=== PATIENT | female | born 1940 | race Caucasian/White ===

== ENCOUNTER 2018-09-03 07:35 | Observation (INO) | payer MEDICARE, SELFPAY ==
[2018-09-03] VITALS (12 sets, daily range): BP systolic 120–162; BP diastolic 56–83; PULSE 56–75; RESP 13–18; TEMP 36.6–36.8; O2SAT 95–98; BMI 23.8; BMI 23.9
--- NOTE | 2018-09-03 07:59 | CT_ITS ---
STUDY: CT BRAIN WITHOUT CONTRAST REASON FOR EXAM: Female, 78 years old. Left upper extremity weakness/numbness. RADIATION DOSAGE (If Supplied By Facility): CTDIvol = ( 44.99 ) mGy, DLP = ( 796.11 ) mGycm TECHNIQUE: Transaxial CT imaging of the brain was performed without administration of intravenous contrast material. Individualized dose optimization techniques were used for this CT. COMPARISON: No relevant priors. FINDINGS: Normal soft tissue structures. Normal calvarium. There is mild cerebral atrophy with widening of the extra-axial spaces and ventricular dilatation. Normal white matter tracts of the cerebral hemispheres. Normal basal ganglia and thalami. Normal brainstem. Normal cerebellum. There is no intracranial hemorrhage. There are no findings of an acute ischemic infarction. Atherosclerotic calcification of the vertebral arteries and cavernous portions of the internal carotid arteries bilaterally. Mucosal thickening of the maxillary sinuses and ethmoid sinuses. Small air-fluid level in the right frontal sinus. CT/Brain/Head without Contrast IMPRESSION: Chronic involutional changes of the brain. Electronically Signed: Reece Doty, at 8:26 EDT , Service support ,
--- NOTE | 2018-09-03 07:59 | EKG12_ITS ---
Test Reason : CP Blood Pressure : / mmHG Vent. Rate : 062 BPM Atrial Rate : 062 BPM P-R Int : 174 ms QRS Dur : 072 ms QT Int : 424 ms P-R-T Axes : 066 -23 031 degrees QTc Int : 430 ms Sinus rhythm with Premature atrial complexes Low voltage QRS Borderline ECG Confirmed by ALISA LOUIS, PONCHO ([id number]), assistant editor JOSE RODRIGUEZ ([id number]) on 09/04/2018 8:13:22 AM Referred By: MONO Confirmed By:PONCHO CUELLAR MD
--- NOTE | 2018-09-03 08:00 | ED.VIS.STROK ---
History of Present Illness Chief Complaint: Numb/Ting Informant: Patient Onset: Days - Reports numbness started several days ago Context: Sudden Onset Timing: Intermittent Quality and Location: Left Arm Parasthesia Onset: Stuttering Current Severity: Mild Maximum Severity: Mild Worsened by: Nothing Relieved by: Nothing Associated Symptoms: Negative for: Headache, Nausea, Vomiting, Chest Pain Narrative: Patient is an elderly woman who presents with left upper extremity numbness. Most recent episode started last evening 11 11:30 PM. She also reported intermittent symptoms past several days. She denies headache, nausea vomiting or any associated symptoms. She denies any visual symptoms. She has trouble speech or swallowing. She describes difficulty using up to one specifically asked if she had difficulty she denies. Patient denies history of coronary disease. She does have history of hypothyroidism. She was on Xarelto. When asked if she is present takes Xarelto she responded no. Will review prior records to determine why she was on Xarelto since patient is not a good informant. Prior similar symptoms: No Recent Illness/Hospitalization: No Past Medical History - Allergies and Home Meds Allergies/Adverse Reactions: Allergies No Known Allergies Allergy (Verified 09/03/18 07:36) Primary Care Physician: Leia Horowitz NP-C [Primary Care Provider] - Surgical History: appendectomy, cholecystectomy, herniorrhaphy Lives: Spouse/ Significant Other Smoking Status: Never smoker Alcohol: Rare Drugs: None Review of Systems General: Denies: Chills, Fever, Sweats Eyes: Denies: Visual changes - bilaterally, Blurred Vision - bilaterally, Diplopia ENT: Denies: Rhinorrhea, Sore throat Cardiovascular: Denies: Chest pain, Palpitations Respiratory: Denies: Dyspnea, Cough, Dyspnea on exertion Gastrointestinal: Denies: Abdominal pain, Nausea, Vomiting, Diarrhea, Melena, Hematochezia Genitourinary: Denies: Dysuria, Hematuria, Frequency Musculoskeletal: Denies: Myalgias, Arthralgias, Neck pain, Back pain, Extremity Pain Skin: Denies: Rash, Wounds Neurological: Reports: Parasthesia, Numbness. Denies: Headache, Weakness Hematologic: Denies: Easy bruising, Easy bleeding Allergy: Denies: Uticaria Physical Exam Vital Signs/Narrative: Vital Signs Temp Pulse Resp BP Pulse Ox 09/03/18 07:36 97.9 F 64 17 162/83 H 98 Inital Vital Signs reviewed: Yes - NIH Stroke Scale 1a Level of Consciousness: 0 1b LOC Questions (Score 2 if aphasic/stupor): 1 1c LOC Commands (Only score 1st attempt): 0 2 Best Gaze (If aphasic, use reflexive mvmts.): 0 3 Visual: 0 4 Facial Palsy: 0 5 Motor Arm Right (UN = amputation/fusion): 0 5 Motor Arm Left: 1 6 Motor Leg Right: 0 6 Motor Leg Left: 0 7 Limb ataxia (Only + if out of proportion): 0 8 Sensory (Aphasia/stupor=0 or 1, coma=2): 0 9 Best Language: 0 10 Dysarthria (mute, coma=2, intubated=UN): 0 11 Extinction and Inattention (only scored if +): 0 Total Score: 2 General: Well nourished, Well developed Head: Normocephalic, Atraumatic Eyes: Perrl, EOMI ENT: Moist mucous membranes, No rhinorrhea Neck: Supple, Nontender Cardiovascular: Regular rate, Regular rhythm, No murmurs, Normal S1, Normal S2 Respiratory: No distress, CTA bilaterally, Chest nontender Abdomen: Soft, Nontender, Nondistended, Normal bowel sounds, No masses Back: Nontender, Normal Inspection Extremities: Nontender, No edema, - - Left lower extremity is larger than right. This is chronic. Suspect secondary to prior surgery or herniated disc. She states recent MRI by Dr. Pravin Xie revealed no abnormality to explain atrophy of right lower extremity compared to left. Skin: Normal color, No rash Neurological: Alert, Oriented x3, Cranial nerves II-XII grossly intact, Normal Sensation, Normal DTR - There is no clonus or Babinski sign Psychological: Normal affect Diagnostic/Tx/Re-eval Impressions Brain CT 09/03/18 07:59 IMPRESSION: Chronic involutional changes of the brain. Electronically Signed: Reece Doty, at 8:26 EDT , Service support , 09/03/18 07:59 Brain/Head without Contrast [CT] Stat Laboratory Results 09/03/18 09/03/18 09/03/18 07:55 07:55 07:55 WBC 5.5 RBC 4.68 Hgb 13.5 Hct 40.8 MCV 87.2 MCH 28.8 MCHC 33.1 RDW 13.2 RDW Differential 42.0 Plt Count 179 MPV 10.6 Immature Gran % (Auto) 0.000 Neut % (Auto) 37.2 L Lymph % (Auto) 45.4 H [place] % (Auto) 9.6 Eos % (Auto) 7.3 H Baso % (Auto) 0.5 Absolute Neuts (auto) 2.1 Absolute Lymphs (auto) 2.50 Total Counted Not Reportable PT 13.5 INR 1.1 APTT 30.4 Sodium 139 Potassium 3.8 Chloride 105 Carbon Dioxide 29.0 Anion Gap 5 BUN 12 Creatinine 0.82 Estim Creat Clear Calc 44.00 Est GFR (MDRD) Af Amer 87 Est GFR (MDRD) Non-Af 72 BUN/Creatinine Ratio 14.7 Glucose 95 Calcium 8.9 Troponin I < 0.015 POC Glucose 09/03/18 08:16 WBC RBC Hgb Hct MCV MCH MCHC RDW RDW Differential Plt Count MPV Immature Gran % (Auto) Neut % (Auto) Lymph % (Auto) [place] % (Auto) Eos % (Auto) Baso % (Auto) Absolute Neuts (auto) Absolute Lymphs (auto) Total Counted PT INR APTT Sodium Potassium Chloride Carbon Dioxide Anion Gap BUN Creatinine Estim Creat Clear Calc Est GFR (MDRD) Af Amer Est GFR (MDRD) Non-Af BUN/Creatinine Ratio Glucose Calcium Troponin I POC Glucose 89 - EKG Initial EKG Interpretation: Sinus Rhythm - Rate 62. There are premature atrial beats noted. IN interval is 174 ms, which is normal. QS duration 72 ms, which is normal. QT interval is normal. Computer is reading low voltage. The EKG is unchanged from January 31, 2012. Other than PACs the EKG is normal. - Medical Decision Making Stroke Team Activated: No - Stuttering symptoms that started several days ago IV TPA Administered: No Patient with complaints of numbness left upper extremity demonstrating over the past several days. Last evening the worst. She describes difficulty using her fingers however when specifically asked if had difficulty dressing undressing she states no. She specifically states she had difficulty making a fist. Patient denies any other symptoms. She reported twinging in her chest. The twinge in her chest lasted seconds. Concern patient had a minor CVA. Stroke order set was initiated. Patient was informed she will need admission for further testing. Patient's work-up including troponin is normal. Will inform patient she will require further testing as an inpatient. Patient did ask if this could be secondary to herniated disc. Patient was informed doubtful secondary to herniated disc since symptoms are not in a radicular distribution.. She states she does have arthritis. Again, she was informed not likely. ED Disposition - Plan for ED Patient: Disposition: Home or Assisted Living Diagnosis: Paresthesia of left arm Referrals: Leia Horowitz, PROCESS DESCRIPTION WRITER-C [Primary Care Provider] -
[2018-09-03 08:11] LABS: Absolute Neutrophil Count 2.1 X10^3/uL (2.0-7.7); Basophil# 0.03 X10^3/uL; Basophil% 0.5 % (0-1); Eosinophils% 7.3 % (0-5); Hematocrit 40.8 % (37-47); Hemoglobin 13.5 g/dl (12.0-15.0); Lymphocyte % 45.4 % (19-41); Mean Corp Hgb Conc 33.1 g/gl (32-36); Mean Corpuscular Hgb 28.8 pg (27.0-32.0); Mean Corpuscular Volume 87.2 fL (81-99); Mean Platelet Vol. 10.6 fl (6.2-12.0); Monocyte# 0.53 X10^3/uL; Monocyte% 9.6 % (0-10); Neutrophil # 2.05 X10^3/uL (2.7-7.7); Neutrophil % 37.2 % (47-70); Platelet Count 179 K/mm3 (150-450); RBC Distribution Width CV 13.2 % (11.6-14.6); Red Blood Count 4.68 M/mm3 (4.2-5.4); White Blood Count 5.5 K/mm3 (4.4-11.0)
[2018-09-03 08:13] LABS: International Normalized Ratio 1.1; Prothrombin Time (Protime)PT. 13.5 SECONDS (11.7-14.9)
[2018-09-03 08:14] LABS: POSITIVE COUNT NO; POSITIVE DIFFERENTIAL NO; POSITIVE MORPHOLOGY NO; Partial Thromboplast Time 30.4 Seconds (24.1-36.2)
[2018-09-03 08:21] LABS: Bedside Glucose 89 mg/dL (70-110)
[2018-09-03 08:22] LABS: Anion Gap 5 (5-15); BUN 12 mg/dL (7-18); BUN/Creat Ratio 14.7 RATIO (10-20); Calcium,Total 8.9 mg/dL (8.5-10.1); Chloride 105 mmol/L (98-107); Creatinine, Serum 0.82 mg/dL (0.55-1.02); EST Glomerular Filtration Rate 72 mL/min (>60); Est Glom Filt Rate - Afr Amer 87 mL/min (>60); Glucose 95 mg/dL (74-106); Potassium 3.8 mmol/L (3.5-5.1); Sodium Level 139 mmol/L (136-145)
--- NOTE | 2018-09-03 08:45 | NURSING ---
DR BRITTNEY JOSHUA
--- NOTE | 2018-09-03 08:46 | HP.PCM_ITS ---
History of Present Illness Date of Admission: 09/03/18 Chief Complaint: left arm numbness The patient is a 78 year old F with past medical history of hypothyroidism. She was admitted through the ED on 09/03/2018 with a complaint of left upper extremity weakness which have been going on for about 2 weeks. Abdomen episodic for about 2 weeks but today it worsened and involved her entire left upper extremity with associated pain in her wrists. She also says she had some chest pain which she thought was due to the muscles that she could feel it with palpation. She denied any weakness in any extremity, any blurred vision, any mouth droop, any slurring of his speech, any diarrhea vomiting. She is never bustos d a stroke before. Review of systems is otherwise negative. Vitals in the ED was stable and labs are unremarkable. CT of the brain was negative for any acute or chronic cranial pathology. She has been admitted for left upper extremity numbness to rule out a stroke. [] Past Medical History Past Medical History (Chronic Problems): Chronic Problems GERD (gastroesophageal reflux disease) (Chronic) Acquired hypothyroidism (Chronic) Allergies No Known Allergies Allergy (Verified 09/03/18 07:36) Home Medications: Ambulatory Orders Medication Instructions Recorded Cyanocobalamin [Vitamin B12] 500 mcg PO DAILY@0800 01/18/13 Levothyroxine [Synthroid] 88 mcg PO DAILY 01/18/13 Glucosamine Complex-Vit D3 Cpt 1 tab PO DAILY 09/03/18 L.acidoph,Paracasei, B.lactis 1 each PO DAILY 09/03/18 [Probiotic] [place]idan-3/Dha/Epa/Fish Oil [Fish Oil 1 each PO DAILY 09/03/18 1,000 mg Softgel] Q10 1 cap PO DAILY 09/03/18 Red Yeast Rice 600 mg PO DAILY 09/03/18 Surgical History: appendectomy, cholecystectomy, herniorrhaphy Lives: Spouse/ Significant Other Smoking Status: Never smoker Alcohol: Rare Drugs: None - *Family History Maternal History Items: Heart Disease Paternal History Items: No pertinent history Review of Systems Constitutional: Denies: Chills, Fever, Malaise, Weakness, Weight Change, Fatigue Eyes: Denies: Blurred vision HEENT: Denies: Head Aches, Sinus Congestion, Sinus Drainage Cardiovascular: Denies: Chest Pain, Palpitations Respiratory: Denies: Cough, Shortness of Breath, Shortness of breath at rest, Shortness of breath upon exertion, Sputum production Gastrointestinal: Denies: Abdominal Pain, Nausea, Vomiting Genitourinary: Denies: Dysuria Musculoskeletal: Denies: Joint Pain, Joint Tenderness Skin: Denies: Rash, Wounds Neurological: Reports: Numbness, Tingling. Denies: Balance problems, Blurred vision, Change in Speech, Slurred speech, Confusion, Difficulty swallowing, Focal weakness, Incoordination, Tremor, Seizures Psychiatric: Denies: Anxiety, Depression, Homicidal Ideations, Suicidal Ideations Hematologic/ Lymphatic: Denies: Easy Bruising, Easy Bleeding VTE Information - Inpt Only VTE Present on Admission: No VTE Pharm Prophylaxis ordered?: Yes Patient Problems: Active and Suspected Problems Paresthesia of left arm (Acute) - Physical Exam General: Alert, Oriented x3, Cooperative, No apparent distress HEENT: Atraumatic, PERRLA, EOMI, Normocephalic Oral: Moist Mucosa Neck: Supple, No JVD, Negative Carotid Bruits Lungs: Clear to auscultation, Normal air movement, No rhonchi, No wheeze, No rales Cardiovascular: Regular rate, Regular Rhythm, Normal S1, Normal S2, No murmurs Abdomen: Bowel Sounds Present, Soft, Non Tender, Non-Distended, No Hepato- splenomegaly Extremities: No clubbing, No cyanosis, No edema, Capillary Refill Less than 3 Seconds Skin: No rashes, No breakdown Musculoskeletal: No Tenderness to Palpation of Joints or Extremities Lymphatic: No Cervical, Supraclavicular, or Inguinal Adenopathy Neurological: Cranial nerves II-XII grossly intact, Neuro grossly intact, Motor Exam 5/5 strength throughout, - - mildly decreased sensation to light touch and pinprick in LUE, Phalen;s and Tinel's sign negative. Psych/Mental Status: Normal Affect, Appropriate, Alert and oriented to time, place, person, mood and affect Vital Signs Temp Pulse Resp BP Pulse Ox 97.9 F 66 18 155/67 H 98 09/03/18 07:36 09/03/18 08:34 09/03/18 08:34 09/03/18 08:34 09/03/18 08:34 Oxygen Delivery Method Room Air Weight: 130 lb 1.164 oz Body Mass Index (BMI) 23.8 Finger Stick Blood Glucose 89 Laboratory Tests Past 24 Hrs 09/03/18 09/03/18 09/03/18 07:55 07:55 07:55 WBC 5.5 RBC 4.68 Hgb 13.5 Hct 40.8 MCV 87.2 MCH 28.8 MCHC 33.1 RDW 13.2 RDW Differential 42.0 Plt Count 179 MPV 10.6 Immature Gran % (Auto) 0.000 Neut % (Auto) 37.2 L Lymph % (Auto) 45.4 H [place] % (Auto) 9.6 Eos % (Auto) 7.3 H Baso % (Auto) 0.5 Absolute Neuts (auto) 2.1 Absolute Lymphs (auto) 2.50 Total Counted Not Reportable PT 13.5 INR 1.1 APTT 30.4 Sodium 139 Potassium 3.8 Chloride 105 Carbon Dioxide 29.0 Anion Gap 5 BUN 12 Creatinine 0.82 Estim Creat Clear Calc 44.00 Est GFR (MDRD) Af Amer 87 Est GFR (MDRD) Non-Af 72 BUN/Creatinine Ratio 14.7 Glucose 95 Calcium 8.9 Troponin I < 0.015 POC Glucose 09/03/18 08:16 POC Glucose [address] 09/03/18 07:59 IMPRESSION: Chronic involutional changes of the brain. Electronically Signed: Reece Soren, at 8:26 EDT , Service support , Assessment/Plan All Active Problems Paresthesia of left arm (Acute) 78-year-old female admitted with a complaint of left upper extremity numbness. 1. Left upper extremity numbness possibly due to CVA vs cervical spine stenosis * Admit to PCU telemetry * NIHSS- 1 (mildly decreased sensation in LUE) * CT of the brain showed no acute intracranial pathology. * Will get MRI of the brain also get CT angiogram of the head and neck as well as CT of the cervical spine. * Neurochecks. Monitor NIH stroke scale. Will start on high intensity statin and aspirin. * A1c was only 5.6 and lipid profile showed elevated cholesterol of 215 with LDL of 134. * Consult neurology. * 2. Hypothyroidism: On Synthroid. DVT prophylaxis: Lovenox * Code Visit OBSV E&M: 85312 Initial observation care L3
--- NOTE | 2018-09-03 10:07 | MRI_ITS ---
STUDY: MRI BRAIN WITHOUT CONTRAST REASON FOR EXAM: Female, 78 years old. Left arm numbness and tingling TECHNIQUE: Standardized multiplanar fat and water weighted pulse sequences were obtained. COMPARISON: 06/08/2011 FINDINGS: There is mild cerebral atrophy with widening of the extra-axial spaces and ventricular dilatation. There are a limited number of small white matter hyperintensities, distributed throughout the deep white matter tracts of the cerebral hemispheres, consistent with mild chronic white matter ischemic changes. There is no evidence for recent intracranial ischemia or other cause of cytotoxic edema on diffusion weighted imaging (DWI). Normal T2* images of the brain without demonstrated susceptibility artifact. There is no demonstrated hemosiderin stain. Normal bilateral basal ganglia. Normal thalami. There is no extra-axial fluid accumulation. Normal flow voids within the major intracranial circulation suggesting patency by spin echo criteria. Normal sella turcica, pituitary gland, infundibular stalk, optic chiasm and hypothalamus. Normal tectal plate and pineal gland. Normal midbrain, jaswant and medulla. Normal cerebellum. Normal basal cisterns. 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 Normal bilateral internal auditory canals. There are bilateral ocular lens implants with otherwise normal intraorbital contents. There is mucoperiosteal inflammatory disease of the paranasal sinuses consistent with mild chronic sinusitis. Normal calvarium and skull base. Normal visualized soft tissue structures. Normal visualized upper cervical spine. MRI/Brain without Contrast IMPRESSION: Involutional changes of the brain, as described above. No acute infarct. Electronically Signed: Crow Morrison MD at 13:41 EDT Tel , Service support ,
--- NOTE | 2018-09-03 10:21 | CT_ITS ---
STUDY: CTA OF THE BRAIN REASON FOR EXAM: Female, 78 years old. Numbness and tingling of the left upper extremity. RADIATION DOSAGE (If Supplied By Facility): CTDIvol = ( 20.08 ) mGy, DLP = ( 1139.37 ) mGycm TECHNIQUE: CT angiography was performed with a multi-detector CT scanner. Data acquisition was obtained from the skull base through the vertex following intravenous administration of 100 IV Isovue 370. MIP images were reconstructed from the axial data set. Post-processing of the angiographic images was performed, with multiplanar reformation and 3D reconstruction. Individualized dose optimization techniques were used for this CT. COMPARISON: None. FINDINGS: Normal bilateral petrous carotid arteries. Normal right cavernous carotid artery with a normal supraclinoid bifurcation. Normal left cavernous carotid artery with a normal supraclinoid bifurcation. Normal right A1 segments of the anterior cerebral artery. Normal left A1 segments of the anterior cerebral artery. Normal intact anterior communicating artery (ACOM). Normal bilateral A2 segments of the anterior cerebral arteries. Normal right M1 and M2 segments of the middle cerebral arteries, with a normal M1 bifurcation. Normal left M1 and M2 segments of the middle cerebral arteries, with a normal M1 bifurcation. Normal right posterior communicating artery (PCOM). Normal left posterior communicating artery (PCOM). Normal bilateral vertebral arteries. Normal basilar artery with a normal basilar bifurcation. The visualized bilateral superior cerebellar (SCA) arteries are normal. Normal bilateral P1, P2 and visualized P3 segments of the posterior cerebral arteries. There is no demonstrated aneurysm of the [place]. Mucosal thickening of the maxillary and ethmoid sinuses. CT/CTA Head W/WO Contrast IMPRESSION: Normal [place] without a demonstrated aneurysm or hemodynamically significant stenosis. Electronically Signed: Reece Doty, at 14:01 EDT , Service support ,
--- NOTE | 2018-09-03 10:21 | CT_ITS ---
STUDY: CTA NECK WITH CONTRAST REASON FOR EXAM: Female, 78 years old. Numbness and tingling of the left upper extremity. RADIATION DOSAGE (If Supplied By Facility): CTDIvol = ( 20.08 ) mGy, DLP = ( 1139.37 ) mGycm TECHNIQUE: CT angiography with multi-detector data acquisition was performed from the aortic arch to the skull base following intravenous administration of 100 IV Isovue 370. MIP images were reconstructed from the axial data set. Post-processing of the angiographic images was performed, with multiplanar reformation and 3D reconstruction. Individualized dose optimization techniques were used for this CT. COMPARISON: None. FINDINGS: AORTIC ARCH: There is atherosclerotic calcific plaque formation of the aortic arch and great vessels arising from the aortic arch, without a hemodynamically significant stenosis. There is a bovine origin of the great vessels with a common origin of the brachiocephalic and left common carotid artery. Normal origin of the left subclavian artery. RIGHT CAROTID ARTERIES: Normal right common carotid artery (CCA). Normal right common carotid bulb. Normal origin of the right internal carotid (ICA) artery without a hemodynamically significant stenosis. Normal visualized cervical portion of the right internal carotid artery. Normal origin of the right external carotid artery (ECA). LEFT CAROTID ARTERIES: Normal left common carotid artery (CCA). Normal left common carotid bulb. Normal origin of the left internal carotid (ICA) artery without a hemodynamically significant stenosis. Normal visualized cervical portion of the left internal carotid artery. Normal origin of the left external carotid artery (ECA). VERTEBRAL ARTERIES: Normal bilateral vertebral arteries. CT/CTA Neck W/WO Contrast IMPRESSION: Normal bilateral cervical carotid and vertebral arteries. Electronically Signed: Reece Doty, at 14:03 EDT , Service support ,
--- NOTE | 2018-09-03 10:21 | CT_ITS ---
STUDY: CT CERVICAL SPINE WITHOUT CONTRAST REASON FOR EXAM: Female, 78 years old. Left upper extremity numbness and tingling. RADIATION DOSAGE (If Supplied By Facility): CTDIvol = ( 20.08 ) mGy, DLP = ( 1139.37 ) mGycm TECHNIQUE: High resolution transaxial imaging was performed without contrast material. Sagittal and coronal images were reconstructed. Individualized dose optimization techniques were used for this CT. COMPARISON: None FINDINGS: Normal craniovertebral junction. There are degenerative changes of the anterior atlantoaxial articulation. Normal odontoid process. Normal cervical lordosis. Normal vertebral bodies and posterior osseous elements. C2-3: Normal endplates. Normal disc height and morphology. Normal central canal and intervertebral neuroforamina. C3-4: Facet joint osteoarthropathy worse on the left side. No significant stenosis is seen. C4-5: Mild degree of disc space narrowing. Uncovertebral arthrosis. Facet joint osteoarthritis worse on the left side. Mild degree of left neural foraminal stenosis. C5-6: Marked degree of disc space narrowing. Spondylosis. Moderate degree of central canal stenosis and bilateral neural foraminal stenosis worse on the left side. C6-7: Moderate degree of disc space narrowing. Facet joint osteoarthritis worse on the left side. Uncovertebral arthrosis. Mild bilateral neural foraminal stenosis slightly worse on the right side. Normal visualized soft tissue structures. CT/Spine Cervical without Contras IMPRESSION: Multilevel degenerative changes, as described above. Spinal stenosis at the C5-C6 level as described. Electronically Signed: Reece Doty, at 14:05 EDT , Service support ,
[2018-09-03 10:49] LABS: Cholesterol 215 mg/dL (200); High Density Lipoprotein 53 mg/dL; Triglycerides 142 mg/dL; Very Low Density Lipoprotein 28 mg/dL (5-40)
[2018-09-03 10:55] LABS: Hemoglobin A1c 5.6 % (4.2-6.3)
--- NOTE | 2018-09-03 11:06 | ECHOCS_ITS ---
Reason For Study: ARRHYTHMIA, CVA Procedure This was a 2D Doppler, Color Flow transthoracic echocardiogram. Exam performed portable in patient room. Left Ventricle Normal LV size. Left ventricular systolic function is normal. The estimated ejection fraction is 55 %. Stage 2 diastolic dysfunction. No regional wall motion abnormalities noted. Right Ventricle Normal RV size. Normal systolic function. Atria Normal left atrium. Normal right atrium. Bubble contrast study negative for right to left interatrial shunt. Mitral Valve Normal mitral valve. Tricuspid Valve Normal tricuspid valve. Mild (1+) tricuspid valve insufficiency. Pulmonary artery systolic pressure is 33 mmHg. Aortic Valve Normal aortic valve. Pulmonic Valve Normal pulmonic valve. Great Vessels Normal aortic root. The pulmonary artery is normal size. Normal inferior vena cava. Pericardium/Pleural No pericardial effusion. Medication Performed a rapid injection of agitated mix of 9 cc saline and 1cc air to assess for atrial septal defect. Diluted definity 3ml given slow IV push to enhance endocardial definition. MMode/2D Measurements & Calculations LVIDd: 4.0 cm IVSd: 0.72 cm LAV(MOD-bp): 31.1 ml LVIDs: 2.7 cm LVPWd: 0.78 cm RVDd: 3.7 cm FS: 33.1 % LAV(MOD-bp) Indexed: 19.5 ml/m2 LAV(MOD-sp2): 31.4 ml LAV(MOD-sp4): 25.7 ml SV(MOD-sp4): 36.7 ml SV(sp4-el): 40.8 ml LVAd ap4: 22.8 cm2 EDV(MOD-sp4): 61.1 ml EDV(sp4-el): 66.8 ml LVAs ap4: 13.2 cm2 ESV(MOD-sp4): 24.4 ml ESV(sp4-el): 26.0 ml EF(MOD-sp4): 60.1 % EF(sp4-el): 61.0 % LA A4 area: 12.7 cm2 RA A4 area: 10.8 cm2 Time Measurements MV dec time: 0.22 sec Doppler Measurements & Calculations MV E max rigoberto: 90.7 cm/sec Lat Peak E' Rigoberto: 8.0 cm/sec Med Peak E' Rigoberto: 7.8 cm/sec MV A max rigoberto: 84.8 cm/sec E/E' lat: 11.4 E/E' med: 11.7 MV E/A: 1.1 Ao V2 max: 136.5 cm/sec LV V1 max: 121.7 cm/sec PA V2 max: 81.6 cm/sec Ao max P.5 mmHg LV V1 max P.9 mmHg TR max rigoberto: 266.8 cm/sec TR max P.5 mmHg Interpretation Summary Normal LV size. Left ventricular systolic function is normal. The estimated ejection fraction is 55 %. Stage 2 diastolic dysfunction. Bubble contrast study negative for right to left interatrial shunt. Ordering Physician: Aliyah Pate Referring Physician: MESERET LUBIN Performed By: Paulina Feng RDCS
[2018-09-04] VITALS (7 sets, daily range): BP systolic 109–135; BP diastolic 45–69; PULSE 60–70; RESP 16–18; TEMP 36.5–36.7; O2SAT 96–100
[2018-09-04] MEDS: Levothyroxine 88 MCG Tablet PO (05:12)
[2018-09-04 05:57] LABS: Absolute Lymphocyte Count 2.55 X10^3/ul (0.83-4.51); Absolute Neutrophil Count 2.4 X10^3/uL (2.0-7.7); Basophil# 0.02 X10^3/uL; Basophil% 0.3 % (0-1); Eosinophil# 0.46 X10^3/uL; Eosinophils% 7.7 % (0-5); Hematocrit 42.6 % (37-47); Lymphocyte # 2.55 X10^3/ul (4.0); Lymphocyte % 42.9 % (19-41); Mean Corp Hgb Conc 32.9 g/gl (32-36); Mean Corpuscular Hgb 28.4 pg (27.0-32.0); Mean Corpuscular Volume 86.4 fL (81-99); Mean Platelet Vol. 10.9 fl (6.2-12.0); Monocyte# 0.49 X10^3/uL; Monocyte% 8.2 % (0-10); Neutrophil # 2.42 X10^3/uL (2.7-7.7); Neutrophil % 40.7 % (47-70); Platelet Count 203 K/mm3 (150-450); RBC Distribution Width CV 13.2 % (11.6-14.6); RBC Distribution Width SD 40.9 fl (35.1-43.9); Red Blood Count 4.93 M/mm3 (4.2-5.4)
[2018-09-04 06:01] LABS: POSITIVE COUNT NO; POSITIVE DIFFERENTIAL NO; POSITIVE MORPHOLOGY NO
[2018-09-04 06:02] LABS: Anion Gap 7 (5-15); BUN 12 mg/dL (7-18); BUN/Creat Ratio 14.2 RATIO (10-20); Calcium,Total 8.8 mg/dL (8.5-10.1); Chloride 107 mmol/L (98-107); Creatinine, Serum 0.85 mg/dL (0.55-1.02); EST Glomerular Filtration Rate 69 mL/min (>60); Est Glom Filt Rate - Afr Amer 83 mL/min (>60); Estimated Creatinine Clearance 42.45 ml/min; Glucose 91 mg/dL (74-106); Potassium 4.3 mmol/L (3.5-5.1); Sodium Level 142 mmol/L (136-145)
[2018-09-04] MEDS: Cyanocobalamin 500 MCG Tablet PO (09:25)
[2018-09-04] MEDS: Aspirin 81 MG TAB.CHEW PO (09:25)
--- NOTE | 2018-09-04 11:15 | CASEMGMT ---
Patient has a Healthcare POA and Healthcare LW on file at [facility]. 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
--- NOTE | 2018-09-04 11:20 | PCM.CONS.GEN ---
Reason for Consult Date of Consultation: 09/04/18 Reason for Consultation: left arm pain History of Present Illness: The patient is a 78 year old F presents with left arm pain involving fingers, radiating to left chest wall, no neck pain or changes with neck movement, no trigger, symptoms progressive for several weeks, worse when awoke yesterday am. similar symptoms on right but less severe. per admit note:The patient is a 78 year old F with past medical history of hypothyroidism. She was admitted through the ED on 09/03/2018 with a complaint of left upper extremity weakness which have been going on for about 2 weeks. Abdomen episodic for about 2 weeks but today it worsened and involved her entire left upper extremity with associated pain in her wrists. She also says she had some chest pain which she thought was due to the muscles that she could feel it with palpation. She denied any weakness in any extremity, any blurred vision, any mouth droop, any slurring of his speech, any diarrhea vomiting. She is never had a stroke before. Review of systems is otherwise negative. Vitals in the ED was stable and labs are unremarkable. CT of the brain was negative for any acute or chronic cranial pathology. She has been admitted for left upper extremity numbness to rule out a stroke. Past Medical History Past Medical History (Chronic Problems): Chronic Problems GERD (gastroesophageal reflux disease) (Chronic) Acquired hypothyroidism (Chronic) Allergies No Known Allergies Allergy (Verified 09/03/18 07:36) Home Medications: Ambulatory Orders Medication Instructions Recorded Cyanocobalamin [Vitamin B12] 500 mcg PO DAILY@0800 01/18/13 Levothyroxine [Synthroid] 88 mcg PO DAILY 01/18/13 Glucosamine Complex-Vit D3 Cpt 1 tab PO DAILY 09/03/18 L.acidoph,Paracasei, B.lactis 1 each PO DAILY 09/03/18 [Probiotic] [place]-3/Dha/Epa/Fish Oil [Fish Oil 1 each PO DAILY 09/03/18 1,000 mg Softgel] Q10 1 cap PO DAILY 09/03/18 Red Yeast Rice 600 mg PO DAILY 09/03/18 Surgical History: appendectomy, cholecystectomy, herniorrhaphy Lives: Spouse/ Significant Other Smoking Status: Never smoker Alcohol: Rare Drugs: None - *Family History Maternal History Items: Heart Disease Paternal History Items: No pertinent history Review of Systems Constitutional: Denies: Chills, Fever, Weight Change HEENT: Denies: Head Aches, Sinus Congestion, Sinus Drainage Cardiovascular: Denies: Chest Pain, Palpitations Respiratory: Denies: Cough, Shortness of breath at rest, Sputum production Gastrointestinal: Denies: Abdominal Pain, Nausea, Vomiting Genitourinary: Denies: Dysuria Musculoskeletal: Denies: Joint Pain, Joint Tenderness Skin: Denies: Rash, Wounds Neurological: Reports: Focal weakness. Denies: Numbness, Tingling Psychiatric: Denies: Anxiety, Depression, Homicidal Ideations, Suicidal Ideations Hematologic/ Lymphatic: Denies: Easy Bruising, Easy Bleeding Patient Problems: Active and Suspected Problems Paresthesia of left arm (Acute) - Physical Exam General: Alert, Oriented x3, Cooperative HEENT: Atraumatic, PERRLA, EOMI, Normocephalic Neck: Supple, No JVD, Negative Carotid Bruits Lungs: Clear to auscultation, Normal air movement Cardiovascular: Regular rate, No murmurs Abdomen: Bowel Sounds Present, Soft, Non Tender Extremities: No edema, Capillary Refill Less than 3 Seconds Skin: No rashes, No breakdown Musculoskeletal: No Tenderness to Palpation of Joints or Extremities Neurological: Cranial nerves II-XII grossly intact, - - bilateral hoffmans diffuse mild hyperreflexia Psych/Mental Status: Normal Affect, Appropriate Vital Signs Temp Pulse Resp BP Pulse Ox 36.5 C L 60 18 135/69 H 99 09/04/18 07:30 09/04/18 07:30 09/04/18 07:30 09/04/18 07:30 09/04/18 07:30 Oxygen Delivery Method Room Air Weight: 59.3 kg Body Mass Index (BMI) 23.9 Finger Stick Blood Glucose 89 Intake and Output for Last 24 Hours 09/02/18 09/03/18 09/04/18 23:59 23:59 23:59 Intake Total 1040 / 1040 60 / 60 Balance 1040 / 1040 60 / 60 Laboratory Tests Past 24 Hrs 09/04/18 09/04/18 05:30 05:30 WBC 6.0 RBC 4.93 Hgb 14.0 Hct 42.6 MCV 86.4 MCH 28.4 MCHC 32.9 RDW 13.2 RDW Differential 40.9 Plt Count 203 MPV 10.9 Immature Gran % (Auto) 0.200 Neut % (Auto) 40.7 L Lymph % (Auto) 42.9 H [place] % (Auto) 8.2 Eos % (Auto) 7.7 H Baso % (Auto) 0.3 Absolute Neuts (auto) 2.4 Absolute Lymphs (auto) 2.55 Total Counted Not Reportable Sodium 142 Potassium 4.3 Chloride 107 Carbon Dioxide 28.0 Anion Gap 7 BUN 12 Creatinine 0.85 Estim Creat Clear Calc 42.45 Est GFR (MDRD) Af Amer 83 Est GFR (MDRD) Non-Af 69 BUN/Creatinine Ratio 14.2 Glucose 91 Calcium 8.8 Current Medications Generic Name Dose Route Start Last Admin Trade Name Freq PRN Reason Stop Dose Admin Aspirin 81 mg 09/03/18 11:05 09/04/18 09:25 Aspirin, Baby PO 81 mg DAILY@0800 [facility] Administration Atorvastatin Calcium 40 mg 09/03/18 11:05 09/03/18 17:35 Lipitor PO Not Given QHS OSWALDO Cyanocobalamin 500 mcg 09/04/18 08:00 09/04/18 09:25 Vitamin B12 PO 500 mcg DAILY@0800 [facility] Administration Dextrose 0 gm 09/03/18 10:07 D50w Syringe IV X1 PRN Hypoglycemia Protocol Enoxaparin Sodium 40 mg 09/04/18 10:00 09/04/18 09:26 Lovenox SC Not Given DAILY@1000 [facility] Glucagon 1 mg 09/03/18 10:07 IM .X1 PRN Hypoglycemia Lactobacillus Acidophilus 1 tablet 09/04/18 10:00 09/04/18 09:25 Acidophilus PO 1 tablet DAILY OSWALDO Administration Levothyroxine Sodium 88 mcg 09/04/18 06:00 09/04/18 05:12 Synthroid PO 88 mcg DAILY@0600 [facility] Administration Sodium Chloride 5 - 15 ml 09/03/18 15:25 IV UD PRN SALINE FLUSH mri brain reviewed, no acute cta reviewed, no cervial stenosis ct neck reviewed, ?stenosis Assessment/Plan All Active Problems Paresthesia of left arm (Acute) suspect cervical stenosis mri, if severed consider referral to spine surgeon [prn analgesics
--- NOTE | 2018-09-04 11:24 | CON.PCM_ITS ---
Reason for Consult Date of Consultation: 09/04/18 Reason for Consultation: left arm pain History of Present Illness: The patient is a 78 year old F presents with left arm pain involving fingers, radiating to left chest wall, no neck pain or changes with neck movement, no trigger, symptoms progressive for several weeks, worse when awoke yesterday am. similar symptoms on right but less severe. per admit note:The patient is a 78 year old F with past medical history of hypothyroidism. She was admitted through the ED on 09/03/2018 with a complaint of left upper extremity weakness which have been going on for about 2 weeks. Abdomen episodic for about 2 weeks but today it worsened and involved her entire left upper extremity with associated pain in her wrists. She also says she had some chest pain which she thought was due to the muscles that she could feel it with palpation. She denied any weakness in any extremity, any blurred vision, any mouth droop, any slurring of his speech, any diarrhea vomiting. She is never had a stroke before. Review of systems is otherwise negative. Vitals in the ED was stable and labs are unremarkable. CT of the brain was negative for any acute or chronic cranial pathology. She has been admitted for left upper extremity numbness to rule out a stroke. Past Medical History Past Medical History (Chronic Problems): Chronic Problems GERD (gastroesophageal reflux disease) (Chronic) Acquired hypothyroidism (Chronic) Allergies No Known Allergies Allergy (Verified 09/03/18 07:36) Home Medications: Ambulatory Orders Medication Instructions Recorded Cyanocobalamin [Vitamin B12] 500 mcg PO DAILY@0800 01/18/13 Levothyroxine [Synthroid] 88 mcg PO DAILY 01/18/13 Glucosamine Complex-Vit D3 Cpt 1 tab PO DAILY 09/03/18 L.acidoph,Paracasei, B.lactis 1 each PO DAILY 09/03/18 [Probiotic] [place]-3/Dha/Epa/Fish Oil [Fish Oil 1 each PO DAILY 09/03/18 1,000 mg Softgel] Q10 1 cap PO DAILY 09/03/18 Red Yeast Rice 600 mg PO DAILY 09/03/18 Surgical History: appendectomy, cholecystectomy, herniorrhaphy Lives: Spouse/ Significant Other Smoking Status: Never smoker Alcohol: Rare Drugs: None - *Family History Maternal History Items: Heart Disease Paternal History Items: No pertinent history Review of Systems Constitutional: Denies: Chills, Fever, Weight Change HEENT: Denies: Head Aches, Sinus Congestion, Sinus Drainage Cardiovascular: Denies: Chest Pain, Palpitations Respiratory: Denies: Cough, Shortness of breath at rest, Sputum production Gastrointestinal: Denies: Abdominal Pain, Nausea, Vomiting Genitourinary: Denies: Dysuria Musculoskeletal: Denies: Joint Pain, Joint Tenderness Skin: Denies: Rash, Wounds Neurological: Reports: Focal weakness. Denies: Numbness, Tingling Psychiatric: Denies: Anxiety, Depression, Homicidal Ideations, Suicidal Ideations Hematologic/ Lymphatic: Denies: Easy Bruising, Easy Bleeding Patient Problems: Active and Suspected Problems Paresthesia of left arm (Acute) - Physical Exam General: Alert, Oriented x3, Cooperative HEENT: Atraumatic, PERRLA, EOMI, Normocephalic Neck: Supple, No JVD, Negative Carotid Bruits Lungs: Clear to auscultation, Normal air movement Cardiovascular: Regular rate, No murmurs Abdomen: Bowel Sounds Present, Soft, Non Tender Extremities: No edema, Capillary Refill Less than 3 Seconds Skin: No rashes, No breakdown Musculoskeletal: No Tenderness to Palpation of Joints or Extremities Neurological: Cranial nerves II-XII grossly intact, - - bilateral hoffmans diffuse mild hyperreflexia Psych/Mental Status: Normal Affect, Appropriate Vital Signs Temp Pulse Resp BP Pulse Ox 36.5 C L 60 18 135/69 H 99 09/04/18 07:30 09/04/18 07:30 09/04/18 07:30 09/04/18 07:30 09/04/18 07:30 Oxygen Delivery Method Room Air Weight: 59.3 kg Body Mass Index (BMI) 23.9 Finger Stick Blood Glucose 89 Intake and Output for Last 24 Hours 09/02/18 09/03/18 09/04/18 23:59 23:59 23:59 Intake Total 1040 / 1040 60 / 60 Balance 1040 / 1040 60 / 60 Laboratory Tests Past 24 Hrs 09/04/18 09/04/18 05:30 05:30 WBC 6.0 RBC 4.93 Hgb 14.0 Hct 42.6 MCV 86.4 MCH 28.4 MCHC 32.9 RDW 13.2 RDW Differential 40.9 Plt Count 203 MPV 10.9 Immature Gran % (Auto) 0.200 Neut % (Auto) 40.7 L Lymph % (Auto) 42.9 H [place] % (Auto) 8.2 Eos % (Auto) 7.7 H Baso % (Auto) 0.3 Absolute Neuts (auto) 2.4 Absolute Lymphs (auto) 2.55 Total Counted Not Reportable Sodium 142 Potassium 4.3 Chloride 107 Carbon Dioxide 28.0 Anion Gap 7 BUN 12 Creatinine 0.85 Estim Creat Clear Calc 42.45 Est GFR (MDRD) Af Amer 83 Est GFR (MDRD) Non-Af 69 BUN/Creatinine Ratio 14.2 Glucose 91 Calcium 8.8 Current Medications Generic Name Dose Route Start Last Admin Trade Name Freq PRN Reason Stop Dose Admin Aspirin 81 mg 09/03/18 11:05 09/04/18 09:25 Aspirin, Baby PO 81 mg DAILY@0800 [facility] Administration Atorvastatin Calcium 40 mg 09/03/18 11:05 09/03/18 17:35 Lipitor PO Not Given QHS OSWALDO Cyanocobalamin 500 mcg 09/04/18 08:00 09/04/18 09:25 Vitamin B12 PO 500 mcg DAILY@0800 [facility] Administration Dextrose 0 gm 09/03/18 10:07 D50w Syringe IV X1 PRN Hypoglycemia Protocol Enoxaparin Sodium 40 mg 09/04/18 10:00 09/04/18 09:26 Lovenox SC Not Given DAILY@1000 [facility] Glucagon 1 mg 09/03/18 10:07 IM .X1 PRN Hypoglycemia Lactobacillus Acidophilus 1 tablet 09/04/18 10:00 09/04/18 09:25 Acidophilus PO 1 tablet DAILY OSWALDO Administration Levothyroxine Sodium 88 mcg 09/04/18 06:00 09/04/18 05:12 Synthroid PO 88 mcg DAILY@0600 [facility] Administration Sodium Chloride 5 - 15 ml 09/03/18 15:25 IV UD PRN SALINE FLUSH mri brain reviewed, no acute cta reviewed, no cervial stenosis ct neck reviewed, ?stenosis Assessment/Plan All Active Problems Paresthesia of left arm (Acute) suspect cervical stenosis mri, if severed consider referral to spine surgeon [prn analgesics
--- NOTE | 2018-09-04 11:49 | PCM.DC ---
- Discharge Diagnoses Current Active Problems: Current Active and Chronic Problems Paresthesia of left arm (Acute) You will use the following diet at home:: Cardiac Your food should be the consistency of: Regular Your liquids should be the consistency of: Regular/Thin Discharge Activity: Return to Normal Activity Weight Bearing Status: Weight bearing as tolerated Call your doctor if you observe: Fever of 101 or Higher, Numbness or Tingling, Uncontrolled pain Allergies/Adverse Reactions: Allergies No Known Allergies Allergy (Verified 09/03/18 07:36) Medications to take at Discharge Cyanocobalamin [Vitamin B12] 500 mcg PO DAILY@0800 01/18/13 Levothyroxine [Synthroid] 88 mcg PO DAILY 01/18/13 Glucosamine Complex-Vit D3 Cpt 1 tab PO DAILY 09/03/18 L.acidoph,Paracasei, B.lactis [Probiotic] 1 each PO DAILY 09/03/18 [place]-3/Dha/Epa/Fish Oil [Fish Oil 1,000 mg Softgel] 1 each PO DAILY 09/03/18 Q10 1 cap PO DAILY 09/03/18 Red Yeast Rice 600 mg PO DAILY 09/03/18 Primary Care Physician: Leia Horowitz NP-C [Primary Care Provider] - Please follow up with your Primary Care Physician in: one week Test Results: Test results from this visit will be discussed in further detail at your follow-up appointment, if applicable. Please Follow Up With: Kim Aleman MD When: 1-2 weeks Please Follow Up With: Michael Menon MD When: one week Proposed Discharge Date: 09/04/18
--- NOTE | 2018-09-04 11:52 | DCINST_ITS ---
- Discharge Diagnoses Current Active Problems: Current Active and Chronic Problems Paresthesia of left arm (Acute) You will use the following diet at home:: Cardiac Your food should be the consistency of: Regular Your liquids should be the consistency of: Regular/Thin Discharge Activity: Return to Normal Activity Weight Bearing Status: Weight bearing as tolerated Call your doctor if you observe: Fever of 101 or Higher, Numbness or Tingling, Uncontrolled pain Allergies/Adverse Reactions: Allergies No Known Allergies Allergy (Verified 09/03/18 07:36) Medications to take at Discharge Cyanocobalamin [Vitamin B12] 500 mcg PO DAILY@0800 01/18/13 Levothyroxine [Synthroid] 88 mcg PO DAILY 01/18/13 Glucosamine Complex-Vit D3 Cpt 1 tab PO DAILY 09/03/18 L.acidoph,Paracasei, B.lactis [Probiotic] 1 each PO DAILY 09/03/18 [place]-3/Dha/Epa/Fish Oil [Fish Oil 1,000 mg Softgel] 1 each PO DAILY 09/03/18 Q10 1 cap PO DAILY 09/03/18 Red Yeast Rice 600 mg PO DAILY 09/03/18 Primary Care Physician: Leia Horowitz NP-C [Primary Care Provider] - Please follow up with your Primary Care Physician in: one week Test Results: Test results from this visit will be discussed in further detail at your follow- up appointment, if applicable. Please Follow Up With: Kim Aleman MD When: 1-2 weeks Please Follow Up With: Michael Menon MD When: one week Proposed Discharge Date: 09/04/18
--- NOTE | 2018-09-04 12:19 | MRI_ITS ---
STUDY: MRI CERVICAL SPINE WITHOUT CONTRAST REASON FOR EXAM: Female, 78 years old. Impingement: Left arm and hand numbness TECHNIQUE: Standardized fat and water weighted pulse sequences were obtained in the sagittal and axial planes. COMPARISON: CT of the cervical spine on September 03, 2018 FINDINGS: Normal foramen magnum and brainstem-cervical cord junction. Normal craniovertebral junction. Normal anterior atlantoaxial articulation. Normal odontoid process. Decreased cervical lordosis. Normal vertebral bodies and posterior osseous elements. C2-3: Normal endplates. Normal disc height, signal and morphology. Normal central canal and intervertebral neural foramina. C3-4: Normal endplates. Normal disc height, signal and tiny central disc protrusion.. Normal central canal and intervertebral neural foramina. C4-5: Normal endplates. Normal disc height, signal and small central disc protrusion. Mild narrowing of the central canal and impingement upon the cord. Moderate left neuroforaminal stenosis secondary to disc and bony hypertrophy C5-6: Grade 1 retrolisthesis. Narrowed disc space and mild bulging disc osteophyte complex. Narrowing of the central canal and cord compression. Moderate right neuroforaminal stenosis and more severe narrowing on the left C6-7: Normal endplates. Normal disc height, signal and minor bulging of the disc. Normal central canal. Mild right neuroforaminal encroachment and moderate narrowing on the left C7-T1: Normal endplates. Normal disc height, signal and morphology. Normal central canal and intervertebral neural foramina. Normal cervical cord. Normal visualized soft tissue structures. MRI/Spine Cervical (Routine) IMPRESSION: No evidence for acute fracture or subluxation. 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
--- NOTE | 2018-09-04 14:13 | DS.PCM_ITS ---
Discharge Date and Diagnosis - Problem List Patient Problems: Active and Suspected Problems Paresthesia of left arm (Acute) Date of Admission: 09/03/18 Date of Discharge: 09/04/18 - Primary Discharge Diagnosis Active and Suspected Problems Paresthesia of left arm (Acute) cervical spine stenosis - Secondary Discharge Diagnosis Chronic Problems GERD (gastroesophageal reflux disease) (Chronic) Acquired hypothyroidism (Chronic) Hospital Course and Treatment Imaging Results: 09/04/18 12:19 MRI Cervical [Spine Cervical (Routine)] [MRI] Urgent Diagnostic Data Brain CT 09/03/18 07:59 IMPRESSION: Chronic involutional changes of the brain. Electronically Signed: Reece Doty, at 8:26 EDT , Service support , Brain MRI 09/03/18 10:07 IMPRESSION: Involutional changes of the brain, as described above. No acute infarct. Electronically Signed: Crow Morrison MD at 13:41 EDT Tel , Service support , Cervical Spine CT 09/03/18 10:21 IMPRESSION: Multilevel degenerative changes, as described above. Spinal stenosis at the C5-C6 level as described. Electronically Signed: Reece Doty, at 14:05 EDT , Service support , Head CTA 09/03/18 10:21 IMPRESSION: Normal [place] without a demonstrated aneurysm or hemodynamically significant stenosis. Electronically Signed: Reece Doty, at 14:01 EDT , Service support , Neck CTA 09/03/18 10:21 IMPRESSION: Normal bilateral cervical carotid and vertebral arteries. Electronically Signed: Reece Doty, at 14:03 EDT , Service support , neurology- Dr Menon Operations: None Procedures: None Summary of Care Provided: The patient is a 78 year old F with past medical history of hypothyroidism. She was admitted through the ED on 09/03/2018 with a complaint of left upper extremity weakness which have been going on for about 2 weeks. Abdomen episodic for about 2 weeks but today it worsened and involved her entire left upper extremity with associated pain in her wrists. She also says she had some chest pain which she thought was due to the muscles that she could feel it with palpation. She denied any weakness in any extremity, any blurred vision, any mouth droop, any slurring of his speech, any diarrhea vomiting. She is never had a stroke before. Review of systems is otherwise negative. Vitals in the ED was stable and labs are unremarkable. CT of the brain was negative for any acute or chronic cranial pathology. She was admitted for left upper extremity numbness to rule out a stroke. She had MRI of the brain which was negative and normal cervical carotid and vertebral arteries. 2D echocardiogram done showed normal left ventricular systolic function with EF of 55% in stage II diastolic dysfunction. She had CT of the cervical spine which showed multilevel degenerative changes, and spinal stenosis at the C5-6 level. Neurology was consulted and also felt it was cervical stenosis. MRI of the cervical spine ordered showed no evidence of acute fracutre or subluxation, and showed moderate spondylosis and bony hypertrophy most severe at C5-C6 as well as evidence of cord compression. MRI was discussed with neurology and decision was made to transfer patient emergently to a tertiary center for spinal surgery evaluation. Discussed with DR Lester Morgan of [facility] SPine surgery-after discussing cervical spine MRI findings with patient, spine surgeon said this was not an emergent situation and deemed it appropriate to discharge patient home to follow-up with him in a week's time at his office in [facility]. Phone number is [phone]. Patient: Make an appointment with within a week. Patient discussed discharge with a prescription for Medrol Dosepak and Flexeril. Patient seen and examined prior to discharge. She now said tingling was in both arms. Review of systems was otherwise negative. Labs and vitals reviewed. Home medications reviewed and reconciled. o/e: Vital Signs Height 5 ft 2 in Weight: 130 lb 11.746 oz Weight in Pounds 130.7 lbs Pulse Ox 96 Temperature 97.9 F Pulse Rate 65 Respiratory Rate 18 Blood Pressure 124/67 Blood Pressure Position Sitting General: Alert, Oriented x3, Cooperative, No apparent distress HEENT: Atraumatic, PERRLA, EOMI, Normocephalic Oral: Moist Mucosa Neck: Supple, No JVD, Negative Carotid Bruits Lungs: Clear to auscultation, Normal air movement, No rhonchi, No wheeze, No rales Cardiovascular: Regular rate, Regular Rhythm, Normal S1, Normal S2, No murmurs Abdomen: Bowel Sounds Present, Soft, Non Tender, Non-Distended, No Hepato- splenomegaly Extremities: No clubbing, No cyanosis, No edema, Capillary Refill Less than 3 Seconds Skin: No rashes, No breakdown Musculoskeletal: No Tenderness to Palpation of Joints or Extremities Lymphatic: No Cervical, Supraclavicular, or Inguinal Adenopathy Neurological: Cranial nerves II-XII grossly intact, Neuro grossly intact, Motor Exam 5/5 strength throughout, - - mildly decreased sensation to light touch and pinprick in both UEs, Phalen;s and Tinel's sign negative. Psych/Mental Status: Normal Affect, Appropriate, Alert and oriented to time, place, person, mood and affect Plan as above. Patient Problems: Active and Suspected Problems Paresthesia of left arm (Acute) - Physical Exam Vital Signs Temp Pulse Resp BP Pulse Ox 97.9 F 65 18 124/67 H 96 09/04/18 13:30 09/04/18 13:30 09/04/18 13:30 09/04/18 13:30 09/04/18 13:30 Oxygen Delivery Method Room Air Weight: 130 lb 11.746 oz Body Mass Index (BMI) 23.9 Finger Stick Blood Glucose 89 Intake and Output for Last 24 Hours 09/02/18 09/03/18 09/04/18 23:59 23:59 23:59 Intake Total 1040 / 1040 420 / 420 Balance 1040 / 1040 420 / 420 Laboratory Tests Past 24 Hrs 09/04/18 09/04/18 05:30 05:30 WBC 6.0 RBC 4.93 Hgb 14.0 Hct 42.6 MCV 86.4 MCH 28.4 MCHC 32.9 RDW 13.2 RDW Differential 40.9 Plt Count 203 MPV 10.9 Immature Gran % (Auto) 0.200 Neut % (Auto) 40.7 L Lymph % (Auto) 42.9 H [place] % (Auto) 8.2 Eos % (Auto) 7.7 H Baso % (Auto) 0.3 Absolute Neuts (auto) 2.4 Absolute Lymphs (auto) 2.55 Total Counted Not Reportable Sodium 142 Potassium 4.3 Chloride 107 Carbon Dioxide 28.0 Anion Gap 7 BUN 12 Creatinine 0.85 Estim Creat Clear Calc 42.45 Est GFR (MDRD) Af Amer 83 Est GFR (MDRD) Non-Af 69 BUN/Creatinine Ratio 14.2 Glucose 91 Calcium 8.8 Discharge Diet: Low fat/ Low Cholesterol Discharge Activity: Return to Normal Activity Weight Bearing Status: Weight bearing as tolerated Call your doctor if you observe: Fever of 101 or Higher, Numbness or Tingling, Uncontrolled pain Home Medications: Medications to take at Discharge Cyanocobalamin [Vitamin B12] 500 mcg PO DAILY@0800 01/18/13 Levothyroxine [Synthroid] 88 mcg PO DAILY 01/18/13 Glucosamine Complex-Vit D3 Cpt 1 tab PO DAILY 09/03/18 L.acidoph,Paracasei, B.lactis [Probiotic] 1 each PO DAILY 09/03/18 [place]-3/Dha/Epa/Fish Oil [Fish Oil 1,000 mg Softgel] 1 each PO DAILY 09/03/18 Q10 1 cap PO DAILY 09/03/18 Red Yeast Rice 600 mg PO DAILY 09/03/18 Primary Care Physician: Leia Horowitz NP-C [Primary Care Provider] - Please follow up with your Primary Care Physician in: one week Please Follow Up With: Kim Aleman MD When: 1-2 weeks Please Follow Up With: Michael Menon MD When: one week Disposition: Home Minutes spent on discharge:: 45 Patient Condition:: Stable Medical Necessity - Tobacco Use Smoking Status: Never smoker Meaningful Use Info Meaningful Use Diagnoses (Choose all that apply): None applicable Code Visit OBSV E&M: 12089 Observation care discharge
--- NOTE | 2018-09-04 14:39 | CASEMGMT ---
Addendum entered by Alla Bearden 09/04/18 15:18: Therapy is recommending OP therapy at discharge for pt's LUE weakness. This RN CM advised pt of this and she states that she has a $45 co-pay for OP therapy visits. Pt states that she is in the [employer] [facility] program in [place] and they have 'Sports medicine people' that can help her set up some exercises to work on the weakness and states that this would be free. Pt states she would like to do this at this time. Ronnell BARTLETT CM Original Note: This RN CM to room with JEAN form at this time, explanation done-pt voices understanding, and signs JEAN form at this time. Original to chart and copy to pt at this time. Pt did have some questions regarding outpt and OBS and this RN CM answered all for pt at this time. Pt voices no further questions/concerns/needs at this time. Ronnell BARTLETT CM
--- NOTE | 2018-09-04 18:26 | PN_ITS ---
Patient Problems: Active and Suspected Problems Paresthesia of left arm (Acute) Subjective: Patient seen and examined. She now has tingling in both arms. Review of systems otherwise negative. Neurology consulted. Vitals/I&O's: Vital Signs Temp Pulse Resp BP Pulse Ox 98.0 F 67 16 109/68 97 09/04/18 16:45 09/04/18 16:45 09/04/18 16:45 09/04/18 16:45 09/04/18 16:45 Oxygen Delivery Method Room Air Weight: 130 lb 11.746 oz Body Mass Index (BMI) 23.9 Finger Stick Blood Glucose 89 Intake and Output for Last 24 Hours 09/02/18 09/03/18 09/04/18 23:59 23:59 23:59 Intake Total 1040 / 1040 780 / 780 Balance 1040 / 1040 780 / 780 General: Alert, Oriented x3, Cooperative, No apparent distress HEENT: Atraumatic, PERRLA, EOMI, Normocephalic Oral: Moist Mucosa Neck: Supple, No JVD, Negative Carotid Bruits Lungs: Clear to auscultation, Normal air movement, No rhonchi, No wheeze, No rales Cardiovascular: Regular rate, Regular Rhythm, Normal S1, Normal S2, No murmurs Abdomen: Bowel Sounds Present, Soft, Non Tender, Non-Distended, No Hepato- splenomegaly Extremities: No clubbing, No cyanosis, No edema, Capillary Refill Less than 3 Seconds Skin: No rashes, No breakdown Musculoskeletal: No Tenderness to Palpation of Joints or Extremities Lymphatic: No Cervical, Supraclavicular, or Inguinal Adenopathy Neurological: Cranial nerves II-XII grossly intact, Neuro grossly intact, Motor Exam 5/5 strength throughout, - - mildly decreased sensation to light touch and pinprick in both UEs, Phalen;s and Tinel's sign negative. Psych/Mental Status: Normal Affect, Appropriate, Alert and oriented to time, place, person, mood and affect Laboratory Results 09/04/18 05:30: WBC 6.0, RBC 4.93, Hgb 14.0, Hct 42.6, MCV 86.4, MCH 28.4, MCHC 32.9, RDW 13.2, RDW Differential 40.9, Plt Count 203, MPV 10.9, Immature Gran % (Auto) 0.200, Neut % (Auto) 40.7 L, Lymph % (Auto) 42.9 H, [place] % (Auto) 8.2, Eos % (Auto) 7.7 H, Baso % (Auto) 0.3, Absolute Neuts (auto) 2.4, Absolute Lymphs (auto) 2.55, Total Counted Not Reportable 09/04/18 05:30: Sodium 142, Potassium 4.3, Chloride 107, Carbon Dioxide 28.0, Anion Gap 7, BUN 12, Creatinine 0.85, Estim Creat Clear Calc 42.45, Est GFR (MDRD) Af Amer 83, Est GFR (MDRD) Non-Af 69, BUN/Creatinine Ratio 14.2, Glucose 91, Calcium 8.[address] 09/03/18 07:59 IMPRESSION: Chronic involutional changes of the brain. Electronically Signed: Reece Doty, at 8:26 EDT , Service support , Brain MRI 09/03/18 10:07 IMPRESSION: Involutional changes of the brain, as described above. No acute infarct. Electronically Signed: Crow Morrison MD at 13:41 EDT Tel , Service support , Cervical Spine CT 09/03/18 10:21 IMPRESSION: Multilevel degenerative changes, as described above. Spinal stenosis at the C5-C6 level as described. Electronically Signed: Reece Doty, at 14:05 EDT , Service support , Head CTA 09/03/18 10:21 IMPRESSION: Normal [place] without a demonstrated aneurysm or hemodynamically significant stenosis. Electronically Signed: Reece Doty, at 14:01 EDT , Service support , Neck CTA 06/10/19 10:21 IMPRESSION: Normal bilateral cervical carotid and vertebral arteries. Electronically Signed: Reece Felipewindarleen, at 14:03 EDT , Service support , Cervical Spine MRI 09/04/18 12:19 IMPRESSION: No evidence for acute fracture or subluxation. Moderate spondylosis and multilevel spinal stenosis secondary to disc disease and bony hypertrophy most severe at C5-6 Electronically Signed: David Perera MD at 16:27 EDT , Service support , Current Medications Aspirin (Aspirin, Baby) 81 mg PO DAILY@0800 [facility] Last Admin: 09/04/18 09:25 Dose: 81 mg Atorvastatin Calcium (Lipitor) 40 mg PO QHS [facility] Last Admin: 09/03/18 17:35 Dose: Not Given Cyanocobalamin (Vitamin B12) 500 mcg PO DAILY@0800 [facility] Last Admin: 09/04/18 09:25 Dose: 500 mcg Dexamethasone Sodium Phosphate (Decadron) 4 mg IV X1 ONE Stop: 09/04/18 18:23 Dextrose (D50w Syringe) 0 gm IV X1 PRN; Protocol PRN Reason: Hypoglycemia Enoxaparin Sodium (Lovenox) 40 mg SC DAILY@1000 [facility] Last Admin: 09/04/18 09:26 Dose: Not Given Glucagon () 1 mg IM .X1 PRN PRN Reason: Hypoglycemia Lactobacillus Acidophilus (Acidophilus) 1 tablet PO DAILY [facility] Last Admin: 09/04/18 09:25 Dose: 1 tablet Levothyroxine Sodium (Synthroid) 88 mcg PO DAILY@0600 [facility] Last Admin: 09/04/18 05:12 Dose: 88 mcg Sodium Chloride () 5 - 15 ml IV UD PRN PRN Reason: SALINE FLUSH Medical Necessity - Tobacco Use Smoking Status: Never smoker Assessment/Plan All Active Problems Paresthesia of left arm (Acute) 78-year-old female admitted with a complaint of left upper extremity numbness. 1. BIlateral UE parasthesiae due to cervical spine stenosis * Patient now has tingling in both upper extremities. * MRI of the brain was negative and MRI and MRA of the head was negative. * CT of the cervical spine shows severe spinal stenosis at C5-C6. MRI done today of the cervical spine showed no evidence of acute fracture or subluxation and moderate spondylosis and multilevel spinal stenosis secondary to disc disease and bony atrophic most severe at C5-C6 with narrowing of the central canal and cord compression. * Discussed with neurology. Per discussion with neurology, will transfer patients to [facility] for spine surgeon evaluation due to evidence of cord compression. * Give patient IV Decadron. * * 2. Hypothyroidism: On Synthroid. DVT prophylaxis: Lovenox * Code Visit Inpatient E&M: 49938 Subs Hosp L2
[2018-09-04] MEDS: dexAMETHasone 4 MG/ML Vial IV (18:57)
[2018-09-04] MEDS: 0.9% NaCl Peripheral Flush Adult/Peds IV (18:57)
== END 2018-09-04 19:40 | disposition home or self-care (01) ==
LOC: ED 08:45 → PCU 08:59
PROVIDERS: Admitting Provider Student in an Organized Health Care Education/Training Program; Emergency Provider Emergency Medicine; Family Provider Nurse Practitioner Primary Care; PCP Nurse Practitioner Primary Care; Visit Provider Student in an Organized Health Care Education/Training Program
DX: R20.0 Anesthesia of skin (principal); R20.2 Paresthesia of skin; M48.02 Spinal stenosis, cervical region; K21.9 Gastro-esophageal reflux disease without esophagitis; E03.9 Hypothyroidism, unspecified; R29.702 NIHSS score 2; I49.1 Atrial premature depolarization; Z79.899 Other long term (current) drug therapy; M79.602 Pain in left arm; R53.1 Weakness
CPT/HCPCS: 36415; 70450; 70496; 70498; 70551; 72125; 72141; 80048; 80061; 82962; 83036; 84484; 85025; 85610; 85730; 93005; 93306; 96374; 97161; 97166; 97530; 99218; 99285; Q9957; Q9967; A4216; C8929; G0378

== ENCOUNTER → 2019-08-14 10:05 | Outpatient (CLI) | payer MEDICARE, SELFPAY ==
[2018-09-03 21:07] VITALS: BMI 23.9
--- NOTE | 2019-08-14 12:06 | NEURO ---
NCS and/or EMG Patient Report Ordering Doctor: Ajay Xie DATE OF SERVICE: 08/14/19 Madison San is an 79 year old female who presents for electrodiagnostic testing of the right upper limb. She reports numbness and tingling in the right hand. Electrodiagnostic findings: Right median motor nerve demonstrates prolonged distal latency with reduced amplitude and normal conduction velocity. Normal right ulnar motor response. Prolonged right median F-wave. Prolonged right median sensory latency at the wrist and palm. Normal ulnar and radial sensory responses. On needle EMG, all muscles tested showed no evidence of denervation with normal motor unit action potentials. Electrodiagnostic impression: This is an abnormal study in the right upper limb. 1. Electrodiagnostic findings demonstrate right-sided median mononeuropathy. This is consistent with a moderate to advanced right carpal tunnel syndrome. If there are any further questions, please do not hesitate to contact me
== END ==
PROVIDERS: PCP Nurse Practitioner Primary Care; Referring Provider Specialist; Visit Provider Specialist
DX: R20.2 Paresthesia of skin (principal)
CPT/HCPCS: 95886; 95910

== ENCOUNTER 2020-04-24 11:15 | Outpatient (RCR) | payer MEDICARE, SELFPAY ==
[2018-09-03 21:07] VITALS: BMI 23.9
== END 2020-04-24 23:59 ==
LOC: IMMUN 11:15
PROVIDERS: PCP Nurse Practitioner Primary Care; Referring Provider Family Medicine; Visit Provider Family Medicine
DX: Z23 Encounter for immunization (principal)
CPT/HCPCS: 0011A; 91301

== ENCOUNTER 2023-01-09 08:44 | Emergency (ER) | payer MEDICARE, SELFPAY ==
[2023-01-09 08:45] VITALS: BP 167/91; PULSE 89; RESP 14; TEMP 36.2; O2SAT 99; BMI 24.8
--- NOTE | 2023-01-09 08:52 | EDS_ITS ---
HPI History of Present Illness Chief Complaint: Fatigue PFSH PFSH Home Medications cyanocobalamin (vitamin B-12) 500 mcg tablet 500 mcg PO DAILY@0800 01/18/13 [History Last Taken 09/02/18 09:00] levothyroxine 75 mcg tablet 88 mcg PO DAILY thyroid 01/18/13 [History Last Taken 09/02/18 07:00] Glucosamine Complex-Vit D3 Cpt 1 tab PO DAILY joints 09/03/18 [History Last Taken 09/02/18 09:00] L.acidoph, paracasei,B. lactis 10 billion cell capsule 1 ea PO DAILY preventative 09/03/18 [History Last Taken 09/02/18 09:00] Q10 1 cap PO DAILY suppliment 09/03/18 [History Last Taken 09/02/18 09:00] omega 5-efe-fyh-fish oil 300 mg-1,000 mg capsule (Fish Oil) 1 ea PO DAILY choles terol 09/03/18 [History Last Taken 09/02/18 09:00] red yeast rice 600 mg capsule 600 mg PO DAILY cholesterol 09/03/18 [History Last Taken 09/02/18 09:00] cyclobenzaprine 10 mg tablet 10 mg PO TID ##30 09/04/18 [Rx Last Taken Unknown] methylprednisolone 4 mg tablets in a dose pack 4 mg PO UD ##1 09/04/18 [Rx Last Taken Unknown] Allergy/AdvReac Type Severity Reaction Status Date / Time No Known Allergies Allergy Verified 01/09/23 08:46 Surgical History (Updated 01/09/23 @ 09:31 by Galilea Pelletier) S/P hip replacement Social History Smoking Status: Never smoker EXAM Physical Exam Const Vital Signs: 01/09/23 08:45 01/09/23 09:30 01/09/23 09:32 Temperature 97.2 F L Temperature Source Temporal Pulse Rate 89 65 Respiratory Rate 14 16 Respiratory Effort Normal Respiratory Pattern Normal Blood Pressure 167/91 H 171/68 H Blood Pressure Mean 116 102 Pulse Ox 99 99 Oxygen Delivery Method Room Air MDM MDM MDM Narrative Medical decision making narrative: HISTORY OF PRESENT ILLNESS: 82-year-old female who fatigue and dizziness with position change. States she experiences her heart racing with activity. She further states she has had palpitations for the last few weeks. she feels lightheaded 2/2 to palpitations. NOtes she has symptoms are not occuring now. She thinks she may have afib. She does not have any symptoms now. She states her symptoms are worse at night when she lays down. She states symptoms come on approximately 1 time per day. She denies any syncope or focal weakness or numbness. Denies any facial drooping or slurred speech. She states has been taking her levothyroxine as prescribed and has not taken more than prescribed dose. She denies any bleeding diathesis. Denies any vomiting or diarrhea. She denies any chest pain. REVIEW OF SYSTEMS: Pertinent positives: Fatigue, dizziness, palpitations Pertinent negatives: Focal numbness, weakness, vomiting, bleeding diathesis PHYSICAL EXAM: Nursing triage notes reviewed, Vital signs reviewed Constitutional: please see mdm HENT: MMM Eyes: Pupils equal round and reactive to light, Extraocular muscles intact Neck: No stridor, no JVD, full neck ROM Lungs: Clear to auscultation, No wheezing or rales. No increased work of breathing, no conversational dyspnea, no accessory muscle use, no nasal flaring. No respiratory distress noted Heart: Regular rate and rhythm, No murmurs, No rubs and No gallops, 2+ distal pulses (radial, femoral, posterior tibial) in all extremities Abdomen: Soft, there is no tenderness, rigidity, rebound or guarding, no obvious peritoneal signs, no palpable pulsatile abdominal masses, no auscultated abdominal bruit : No CVAT Extremities: No edema Neuro: Alert and oriented x3, neuro exam at baseline, cranial nerves II through XII are intact. No pain with extraocular muscle movement. There is negative test of skew. 5 of 5 strength in upper and lower extremities in flexion extension. Intact sensation to light touch in upper and lower extremity dermatomes. No truncal or extremity ataxia. No dysdiadochokinesia. Normal gait. 2+ reflexes in upper and lower extremities. No meningeal signs. Negative Babinski. NIH of 0. Skin: No rash or lesions noted MEDICAL DECISION MAKING: Chief Complaint: Fatigue, dizziness, palpitations External records reviewed: Last ED visit in 2019.History of cervical spine stenosis. Prior imaging studies reviewed: MRI of the brain thousand 18 shows no acute Factors affecting care: Hypothyroidism, GERD Social determinants of health: Elderly History obtained from others: The patient's Consults: none [] [facility] Narrative: Patient was hemodynamically stable, afebrile, nontoxic-appearing. Patient is well-hydrated. She had no focal neurologic deficits. She was not symptomatic on my assessment. I considered the following differential diagnosis: CVA, TIA, ACS, arrhythmia, anemia, electrolyte disturbance, UTI, dehydration I treated the patient with 500 cc of normal saline I obtained a broad lab and imaging work-up to further elucidate the etiology the patient complaints.. ALL IMAGES (IF OBTAINED) HAVE BEEN PERSONALLY REVIEWED AND INTERPRETED BY MYSELF. EKG with normal sinus rhythm, normal axis, normal intervals, no STEMI, similar to prior EKG from August 2018 CBC without leukocytosis, severe anemia, no thrombocytopenia. Troponin is negative, no evidence of myocardial ischemia TSH, free T4 showed no evidence of hyperthyroidism Magnesium within normal limits BMP without evidence of significant electrolyte abnormalities, no anion gap, no acute kidney injury. I have personally reviewed the patient's chest x-ray. Chest x-ray is unremarkable for pulmonary edema, pneumothorax, pneumonia or focal cardiopulmonary abnormality. The synthesis of the patient's labs images and EKG suggest no life-limiting etiology. Suspect the patient is suffering from intermittent arrhythmia could be PVCs or potentially atrial fibrillation. There is no evidence of that here today. No indication for treatment at this time. We will give close PCP follow-up, return precautions and outpatient home monitoring instructions. The patient and/or family, caregivers express understanding. The patient and/or family, caregivers agrees with the plan. Shared decision making: I will have a discussion with the patient and or visitors regarding risk/benefits of further testing or admission. They will be made aware of of the risk/benefits inherent in this decision they will be given the opportunity to voice understanding. Total critical care time today provided was at least 0 minutes. This excludes separately billable procedures. Critical care time (if documented) is secondary to the patient having high probability of clinically significant/life threatening deterioration in the patient's condition which required my urgent intervention. Impression: 1. Palpitations Dispo: discharge Lab Data Attestation: I reviewed the patient's lab results. Labs: Laboratory Results - last 24 hr 01/09/23 09:01 WBC 7.7 RBC 4.55 Hgb 12.9 Hct 40.6 MCV 89.2 MCH 28.4 MCHC 31.8 L RDW Std Deviation 42.9 RDW Coeff of Maame 13.2 Plt Count 226 MPV 10.5 Sodium 141 Potassium 3.9 Chloride 108 H Carbon Dioxide 26.0 Anion Gap 7 BUN 17 Creatinine 0.96 Estim Creat Clear Calc 35.12 Est GFR (MDRD) Af Amer 72 Est GFR (MDRD) Non-Af 59 L BUN/Creatinine Ratio 17.8 Glucose 98 Calcium 9.0 Magnesium 2.5 Troponin I High Sens 8 TSH 2.96 Free T4 1.09 Free T3 pg/dL 2.0 L Radiography Diagnostic Testing: Clinical Impression(s) from Imaging Studies Chest X-Ray 01/09/23 09:20 IMPRESSION: No acute abnormality is seen. Electronically Signed: Reece Doty MD at 9:46 EDT , Discharge Plan Triage Chief Complaint: Fatigue ED Provider: Topher Tolliver Dx/Rx/DC Orders Instructions: ED Palpitations Prescriptions: No Action levothyroxine 75 MCG tablet 88 mcg PO DAILY Patient Comments: THYROID cyanocobalamin (vitamin B-12) 500 MCG tablet 500 mcg PO DAILY@0800 Patient Comments: SUPPLEMENT red yeast rice 600 MG capsule 600 mg PO DAILY Q10 1 CAP capsule 1 cap PO DAILY omega 0-zga-qnt-fish oil [Fish Oil] 1 EACH capsule 1 ea PO DAILY L.acidoph, paracasei,B. lactis 1 EACH capsule 1 ea PO DAILY Glucosamine Complex-Vit D3 Cpt 1 tab PO DAILY cyclobenzaprine 10 MG tablet 10 mg PO TID Qty: 30 0RF methylprednisolone 4 MG tablet 4 mg PO UD Qty: 1 0RF Primary Care Provider: Leia Horowitz NP Referrals: Leia Horowitz NP, [employer] [Primary Care Provider] - Activity Restrictions/Additional Instructions: Thank you for trusting us with your care today! Please take Tylenol (2 pills, 650 mg), ibuprofen (2 pills, 400 mg) every 6 hours as needed for pain and fever control. Please return to the emergency department if your symptoms change or worsen. Please follow-up with your primary care physician and asked specifically about outpatient heart monitor such as a Holter monitor. He may also obtain a smart watch which can monitor your heart rate. There is also a commercial product called [employer] which will allow you to monitor your heart rate at home as well and can even give a diagnosis of atrial fibrillation. You can google these options and decide which 1 is best or just follow with your primary doctor and allow him or her to decide for you. Please follow with your primary care physician for further outpatient evaluation and management. Disposition Disposition: Home, Self Care
--- NOTE | 2023-01-09 09:03 | EKG12_ITS ---
Test Reason : PALPITATIONS Blood Pressure : / mmHG Vent. Rate : 070 BPM Atrial Rate : 070 BPM P-R Int : 180 ms QRS Dur : 062 ms QT Int : 400 ms P-R-T Axes : 066 -19 014 degrees QTc Int : 432 ms Normal sinus rhythm with sinus arrhythmia Low voltage QRS Borderline ECG When compared with ECG of 03-SEP-2018 07:44, Premature atrial complexes are no longer Present Confirmed by ALISA LOUIS, PONCHO ([id number]), acquisitions editor EMMANUELLE GUERRERO ([id number]) on 01/11/2023 2:28:45 PM Referred By: GERRI Confirmed By:PONCHO CUELLAR MD
[2023-01-09 09:20] LABS: Hematocrit 40.6 % (37-47); Hemoglobin 12.9 g/dL (12.0-15.0); Mean Corp Hgb Conc 31.8 g/dL (32-36); Mean Corpuscular Hgb 28.4 pg (27.0-32.0); Mean Corpuscular Volume 89.2 fL (81-99); Mean Platelet Vol. 10.5 fl (6.2-12.0); Platelet Count 226 K/mm3 (150-450); RBC Distribution Width CV 13.2 % (11.6-14.6); RBC Distribution Width SD 42.9 fl (35.1-43.9); Red Blood Count 4.55 M/mm3 (4.2-5.4); White Blood Count 7.7 K/mm3 (4.4-11.0)
--- NOTE | 2023-01-09 09:20 | RAD_ITS ---
STUDY: X-RAY CHEST REASON FOR EXAM: Female, 82 years old. Palpitations TECHNIQUE: Single AP portable view of the chest. COMPARISON: None. FINDINGS: The lungs are clear and expanded. There is no demonstrated pleural abnormality. Normal size heart. Normal mediastinum and addi. Normal visualized pulmonary arteries. There is atherosclerotic tortuosity of the aortic arch and descending thoracic aorta. There are degenerative changes of the visualized thoracic spine. Normal visualized ribs, clavicles, and shoulders. There is no demonstrated abnormality of the visualized soft tissue structures of the upper abdomen. RAD/Chest 1 View (Portable) IMPRESSION: No acute abnormality is seen. Electronically Signed: Reece Doty MD at 9:46 EDT ,
[2023-01-09] MEDS: 0.9% Normal Saline (500mL Bag) 500 ML 1000 ML IV (09:28)
[2023-01-09 09:32] VITALS: BP 171/68; PULSE 65; RESP 16; O2SAT 99
[2023-01-09 09:42] LABS: Anion Gap 7 (5-15); BUN 17 mg/dL (7-18); BUN/Creat Ratio 17.8 RATIO (10-20); Chloride 108 mmol/L (98-107); Creatinine, Serum 0.96 mg/dL (0.55-1.02); EST Glomerular Filtration Rate 59 mL/min (>60); Est Glom Filt Rate - Afr Amer 72 mL/min (>60); Estimated Creatinine Clearance 35.12 ml/min; Glucose 98 mg/dL (74-106); Magnesium 2.5 mg/dL (1.6-2.6); Potassium 3.9 mmol/L (3.5-5.1); Sodium Level 141 mmol/L (136-145); T4 Free Direct 1.09 ng/dL (0.76-1.46); Thyroid Stim Hormone (TSH) 2.96 uIU/mL (0.358-3.74); Troponin-I HS 8 pg/mL (3.0-54.0)
--- NOTE | 2023-01-09 09:55 | CM.ED ---
Social Work SW performed chart review; LW and HCPOA documents on file as of 2011. Patient's HCPOA is patient's son, Crow San and alternate is Jacky Jaswinder. Ramona MORA, ERICKA
== END 2023-01-09 10:09 | disposition home or self-care (01) ==
LOC: ED 09:56
PROVIDERS: Emergency Provider Emergency Medicine; PCP Nurse Practitioner Primary Care; Visit Provider Emergency Medicine
DX: R00.2 Palpitations (principal)
CPT/HCPCS: 71045; 80048; 83735; 84439; 84443; 84481; 84484; 85027; 93005; 99284; A4216

== ENCOUNTER → 2023-06-20 | Outpatient (CLI) | payer MEDICARE, SELFPAY ==
--- NOTE | 2023-06-20 12:03 | NEURO ---
NCS and/or EMG Patient Report Ordering Doctor: Leia Horowitz NP DATE OF SERVICE: 06/20/23 Clinical Summary: 82 year old female patient with symptoms of numbness that runs from the right knee down into the foot. She denies having any current back pain but has a remote history of sciatica and lumbar spine surgery. Nerve Conduction Studies Summary: There was a 27% drop in the right peroneal-EDB CMAP amplitude across the fibular head but no corresponding drop in peroneal motor conduction velocity. Needle Examination Summary: Needle examination demonstrated increased insertional activity and spontaneous activity (positive sharp waves) in the right tibialis anterior muscle. There was a higher proportion of motor unit action potentials with reduced recruitment, increased amplitude, increased duration, and polyphasia in the right tensor fascia bridgette, biceps femoris-long head, tibialis anterior, peroneus longus, medial gastrocnemius, and flexor digitorum longus muscles. Impression: There is electrodiagnostic evidence of the following - 1) Subacute to chronic, right L5 radiculopathy 2) Chronic, right S1 radiculopathy In addition, partial peroneal motor conduction block across the fibular head, can be suggestive/indicative (but not definitively diagnostic by itself) of a right peroneal mononeuropathy at the fibular head. Multi Select Codes Neurology Neurology Interp Codes: 73335-94 Musc test done w/n test comp (interp) (1) and 31783-81 Nrv cndj tst 3-4 studies (interp)
== END | disposition home or self-care (01) ==
LOC: PSN 10:19
PROVIDERS: PCP Nurse Practitioner Primary Care; Referring Provider Nurse Practitioner Primary Care; Visit Provider Nurse Practitioner Primary Care
DX: R20.2 Paresthesia of skin (principal)
CPT/HCPCS: 95886; 95908